=== PATIENT | male | born 2000 | race Caucasian/White ===

== ENCOUNTER 2022-02-13 19:05 | Emergency (ER) | payer MEDICAID ==
[~2022-02-13] VITALS: Ht 172.7 cm; Wt 69.0 kg
[2022-02-13] MEDS ORDERED: IBUPROFEN 600MG TABLET PO STA (20:25)
[2022-02-13] MEDS ORDERED: IBUP-2029 MT (22:43)
[2022-02-13 22:58] VITALS: BP 120/72
== END 2022-02-13 23:00 | disposition home or self-care (01) ==
LOC: ER 19:05
DX: R51.9 Headache, unspecified (principal); R53.1 Weakness
CPT/HCPCS: 99284

== ENCOUNTER 2023-05-21 22:02 | Emergency (ER) | payer SELFPAY ==
[~2023-05-21] VITALS: Ht 175.3 cm; Wt 73.0 kg
[~2023-05-21 22:02] MED LIST: IBUP-2029 MT
[2023-05-21 22:09] VITALS: BP 136/84; PULSE 85; RESP 17; TEMP 98.8; O2SAT 98
[2023-05-22] MEDS ORDERED: IBUPROFEN 600MG TABLET PO ONE (01:45)
== END 2023-05-22 07:53 | disposition home or self-care (01) ==
LOC: ER 22:38
DX: L98.8 Other specified disorders of the skin and subcutaneous tissue (principal)
CPT/HCPCS: 99281